=== PATIENT | female | born 2000 | race Two or more races ===

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

== ENCOUNTER 2023-07-15 10:57 | Emergency (ER) | payer OTHER ==
[~2023-07-15] VITALS: Ht 152.4 cm; Wt 69.4 kg
[~2023-07-15 10:57] MED LIST changes: +ORASEP SPRAY30 ML MM; +ZITHROMAX500 MG PO
[2023-07-15 13:33] LABS: HEMATOCRIT 40.4 % (36.0-45.00); HEMOGLOBIN 13.7 g/dL (12.0-15.00); MEAN CELL VOLUME 83.3 fL (80.00-100.00); MEAN CORPUSCULAR HEMOGLOBIN 28.2 pg (27.00-32.0); MEAN CORPUSCULAR HGB CONC 33.8 g/dl (32.0-36.0); PLATELET COUNT 316 K/uL (150-450); RED BLOOD COUNT 4.85 M/uL (4.00-6.00); RED CELL DISTRIBUTION WIDTH 13.3 % (11.5-14.5)
== END 2023-07-15 14:25 | disposition home or self-care (01) ==
LOC: EMR PED 10:57
PROVIDERS: Pediatrics
DX: J06.9 Acute upper respiratory infection, unspecified (principal)

== ENCOUNTER 2024-08-24 09:45 | Emergency (ER) | payer OTHER ==
[~2024-08-24] VITALS: Ht 152.4 cm; Wt 72.6 kg
[~2024-08-24 09:45] MED LIST changes: +ACETAMINOPHEN500 M2 PO; +AMOX-CLAV 875-1 EACH PO; +INTESTINEX680 M1 PO
[2024-08-24] MEDS ORDERED: KETOROLAC TROMETHAMINE 30 MG VIAL IM ONE (13:45)
[2024-08-24] MEDS ORDERED: ORPHENADRINE CITRATE 30 MG/ML AMPUL IM ONE (13:45)
[2024-08-24] MEDS ORDERED: ORPHENADRINE CITRATE 30 MG/ML AMPUL ONE (13:51)
[2024-08-24] MEDS ORDERED: KETOROLAC TROMETHAMINE 30 MG VIAL ONE (13:51)
== END 2024-08-24 15:18 | disposition home or self-care (01) ==
LOC: ER 09:47
DX: M94.0 Chondrocostal junction syndrome [Tietze] (principal)
CPT/HCPCS: 96372; 99282; J1885; J2360